=== PATIENT | male | born 2005 | race Caucasian/White ===

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

== ENCOUNTER 2023-04-06 15:09 | Emergency (ER) | payer BC, MEDICAID ==
[~2023-04-06] VITALS: Ht 172.7 cm; Wt 72.7 kg
[2023-04-06 15:54] VITALS: BP 115/96
[2023-04-06] MEDS ORDERED: cyclobenzaprine 10mg tablet PO ONE (16:35)
[2023-04-06] MEDS ORDERED: ketorolac trometh inj. 60 MG/2 ML VIAL IM ONE (16:35)
[2023-04-06] MEDS ORDERED: CYCL-1 PO (16:38)
[2023-04-06] MEDS ORDERED: LIDO-15 TD (16:38)
[2023-04-06] MEDS ORDERED: IBUP-1986 PO (16:38)
== END 2023-04-06 16:50 | disposition home or self-care (01) ==
LOC: ER 15:09
DX: S39.012A Strain of muscle, fascia and tendon of lower back, initial encounter (principal); X58.XXXA Exposure to other specified factors, initial encounter; Y93.89 Activity, other specified; Y92.89 Other specified places as the place of occurrence of the external cause; Y99.8 Other external cause status
CPT/HCPCS: 96372; 99283; J1885